=== PATIENT | male | born 1965 | race Caucasian/White ===

== ENCOUNTER 2019-10-29 11:40 | Emergency (ER) | payer SELFPAY ==
[~2019-10-29] VITALS: Ht 167.6 cm; Wt 68.0 kg
[2019-10-29 11:48] VITALS: Ht 167.6 cm; Wt 68.0 kg
[2019-10-29 12:22] VITALS: BP 140/78
== END 2019-10-29 12:22 | disposition home or self-care (01) ==
LOC: ED 11:40
DX: S05.01XA Injury of conjunctiva and corneal abrasion without foreign body, right eye, initial encounter (principal); H10.31 Unspecified acute conjunctivitis, right eye; X58.XXXA Exposure to other specified factors, initial encounter; Y93.89 Activity, other specified; Y92.89 Other specified places as the place of occurrence of the external cause; Y99.8 Other external cause status